=== PATIENT | male | born 1955 | race African-American/Black ===

== ENCOUNTER 2023-08-20 07:27 | Day surgery (SDC) | payer OTHER ==
[2023-08-17 14:49] LABS: Absolute Lymphocytes (CBC) 2.9 K/uL (0.7-4.9); Hematocrit 42.1 % (39.6-49.0); Lymphocytes % 33.5 % (15.3-44.8); MCV 90.9 fL (80-100); MPV 9.5 fL (7.6-11.3); Platelets 137 thou/uL (152-406); RBC Red Blood Cell Count 4.63 M/uL (4.33-5.43)
[2023-08-17 14:59] LABS: Potassium 3.6 mEq/L (3.5-5.1)
--- NOTE | 2023-08-17 15:27 | RAD REPORT ---
EXAM DESCRIPTION: Eric Dumont (2 Views)08/17/2023 2:41 pm CLINICAL HISTORY: Preop for hernia surgery COMPARISON: 2013 FINDINGS: The lungs appear clear of acute infiltrate. The heart is normal size IMPRESSION: No acute abnormalities displayed
[2023-08-20] MEDS ORDERED: Ringers Lactate 1,000 ML IV ONE (07:49)
[2023-08-20 08:07] LABS: MPV 9.6 fL (7.6-11.3); Platelets 123 thou/uL (152-406)
[2023-08-20 08:14] LABS: Protime INR 0.95
[2023-08-20] MEDS: CEFAZOLIN SODIUM 1 GM/VIAL ONE ×2 (08:16→08:55)
[2023-08-20] MEDS ORDERED: propofoL 200 MG/20 ML VIAL IV ONE (08:25)
[2023-08-20] MEDS ORDERED: FENTANYL CITR 100 MCG/2 ML ONE (08:25)
[2023-08-20] MEDS ORDERED: dexAMETHasone 10 MG/ML VIAL ONE (08:25)
[2023-08-20] MEDS ORDERED: ROCURONIUM 50 MG/5 ML VIAL IV ONE (08:25)
[2023-08-20] MEDS ORDERED: KETOROLAC 30 MG/ML INJ ONE (08:26)
[2023-08-20] MEDS ORDERED: MIDAZOLAM HCL 2 MG/2 ML INJ ONE (08:26)
[2023-08-20] MEDS ORDERED: LIDOCAINE 2% MPF 5 ML VIAL ONE (08:26)
[2023-08-20] MEDS ORDERED: ONDANSETRON 4 MG/2 ML VIAL ONE (08:31)
[2023-08-20 08:48] LABS: Platelets, Giant FEW
--- NOTE | 2023-08-20 09:33 | P.BOP ---
Preoperative diagnosis: bilateral incarcerated inguinal hernias Postoperative diagnosis: same Primary procedure: Laparoscopic repair of bilateral inguinal hernias with mesh Corporate Associate Attorney: Giselle Villanueva) Estimated blood loss: <10cc Specimen: none Findings: as above Anesthesia: General Complications: None Implants: medium 3D mesh bilateral Transferred to: Recovery Room Condition: Good
[2023-08-20] MEDS ORDERED: GLYCOPYRROLATE 0.2 MG/ML SYR ONE (09:34)
[2023-08-20] MEDS ORDERED: NEOSTIGMINE 1 MG/ML -10 ML VIAL ONE (09:36)
[2023-08-20] MEDS ORDERED: Mastisol Adhesive Liq ONE (09:42)
[2023-08-20 09:46] VITALS: O2SAT 100
[2023-08-20] MEDS: HYDROMORPHONE HCL 1 MG/ML INJ ONE ×2 (10:00→10:05)
[2023-08-20] MEDS ORDERED: TAMSULOSIN 0.4 MG SR CAP ONE (11:58)
[2023-08-20 14:01] VITALS: BP 137/76
[2023-08-20 14:02] VITALS: TEMP 97
--- NOTE | 2023-08-20 17:11 | EKG ---
Test Date: 2023-08-17 Test Time: 14:32:04 Dipper Machine Operator: SHWETA MEASUREMENT RESULTS: Intervals: Rate: 52 CT: 148 QRSD: 98 QT: 424 QTc: 394 [place]: P: 71 CT: 148 QRS: -18 T: -11 INTERPRETIVE STATEMENTS: Sinus bradycardia Septal infarct, age undetermined Abnormal ECG Compared to ECG 08/07/2014 18:00:44 Myocardial infarct finding now present Electronically Signed On 08-20-23 17:06:02 CDT by Saud Kingsley
--- NOTE | 2023-08-20 22:16 | OP ---
Date of Procedure: 08/20/2023 Surgeon: Lakhwinder Leo MD [employer] Mechanical Technician: SETH Michaels Preoperative Diagnosis: Bilateral incarcerated tender inguinal hernias. Postoperative Diagnosis: Bilateral incarcerated tender inguinal hernias. Procedure: Laparoscopic repair of bilateral incarcerated inguinal hernia with mesh. Estimated Blood Loss: Less than 10 mL. Specimen: None. Anesthesia: General plus local. Finding: As above. Implant: Medium 3D mesh right and left. Indications: This is the case of a 68-year-old patient who comes to us with bilateral inguinal herni as incarceration, on the right side is more pronounced with also a small bowel on it. The benefits, alternatives, and risks of laparoscopic possible open repair of bilateral inguinal hernias with mesh fully explained, which include, but not limited to infection, bleeding, damage to adjacent structures , anesthesia complication, recurrence, NH, even . He also understands this may not relieve any symptoms. He might need more than one surgical intervention. He also explained we might have to use mesh in this region. Pros and cons of mesh use were discussed with the patient and all the question s were answered to his satisfaction. He signed a consent. Description Of Procedure: The patient was brought to the operating room, placed in supine position. Anesthesia was done without complication. Abdominal and inguinal region were prepped and draped in a sterile fashion. Patient placed in Trendelenburg position. A time-out was called. An incision wa s made after injecting local anesthetic on the infraumbilical region until we see anterior rectus she ath that was on the right side. The anterior rectus sheath was opened. The muscle retracted lateral ly to expose the posterior rectus sheath. The extraperitoneal space was gently developed with the he lp of blunt dissection and a Spacemaker double balloon tip trocar was placed in that area directed to wards the pubic symphysis. The scope was placed in that area. The balloon was inflated under direct visualization to create the extraperitoneal space. After that, the balloon was deflated and removed . We insufflated the area and put the cameras once again in. A 5 mm trocar was placed above the pub ic symphysis and another one jail between the first and second one. The preperitoneal space was g ently developed first in the right side. We have to remember this patient has an incarcerated bowel, but it was reduced carefully. We had this peritoneal space developed. First I exposed the inferior epigastric vessels and we kept them anterior. The Darren's ligament was dissected lateral to the ju nction with the iliac veins. The dissection continued inferiorly to the iliopubic tract avoiding dam age to the femoral branch of the genitofemoral nerve and lateral femoral cutaneous nerve. The cord s tructures were carefully skeletonized. Once again, the hernia was retracted after making sure we hav e reduction of the content. It looked viable. That moment we did go to the left side. In the left side, we did the same. The preperitoneal space was gently developed, epigastric vessels kept anterio r. The Darren's ligament dissected laterally to the junction with the iliac veins. The dissection c ontinued inferiorly, once again avoiding damage to the same 2 nerve. The hernia was identified and c arefully reduced into the abdominal cavity and the content too which was mainly fatty tissue. At alex t moment, we proceeded to introduce a mesh piece. We to the left side first since we were already working on that area. We aligned the mesh to cover direct and indirect spaces and secured i n place lateral and superior to the iliopubic tract and inferior and medial to the Darren's ligament with the help of SorbaFix. Then, we directed our attention to the right side. Once again, we accomm odated a 3D mesh to cover direct and indirect spaces and the mesh was secured in place lateral and cantrell perior to the iliopubic tract and medially and inferiorly to the Darren's ligament once again with So rbaFix. After ensuring complete hemostasis, we proceeded to allow the air to escape as we were holdi ng the mesh in place. The trocars were removed under direct visualization. The anterior rectus nelson th was closed with #1 Vicryl and the skin was approximated with 3-0 chromic in a subcuticular fashion and Steri-Strips. Sponge count and instrument count was correct at the end of the case. Testicles were within the scrotum. Disposition: Home. Activity: As tolerated. No heavy lifting. Condition: Stable. Follow up in my office in 1 week. Call for appointment [phone]. Keep area dry for 48 hours, then m ay shower. Cold compress to bilateral inguinal region. HM/MODL Voice ID: [id number] Report ID: [id number]
== END 2023-08-20 11:53 | disposition home or self-care (01) ==
LOC: OR 07:27
PROVIDERS: ATTEND Surgery
PROC: 0YUA4JZ Supplement Bilateral Inguinal Region with Synthetic Substitute, Percutaneous Endoscopic Approach (ICD-10-PCS; principal; 2023-08-20 08:30)
DX: K40.00 Bilateral inguinal hernia, with obstruction, without gangrene, not specified as recurrent (principal)
CPT/HCPCS: 93005; 85025; 80048; 36415 ×2; 85049; 85610; 85730; 71046; 49650; J2704; J2710; J2001; J2250; J3010; J1100; J1170; J2405; J7120; J0690

== ENCOUNTER 2024-04-22 13:11 | Emergency (ER) | payer OTHER ==
--- OUTSIDE RECORDS SUMMARY | 2024-04-22 13:13 | XMS REPORT | Continuity of Care Document ---
Author Name Unknown Address [address] [facility]. [address] [place] [address] [facility] thconnect Address [address] [facility] [address] [place] [address] Care Team Providers Care Scientific Glass Blower Name Role Phone Andrew Moe Cardiology Attending Clinician Unavailable Ping CHANEY Attending Clinician Unavailable Ping Hoff Attending Clinician [phone] Doctor Unassigned, [place] Attending Clinician U navailable Andrew Moe Cardiology Admitting Clinician Unavailable Payers Payer Name Policy Type Policy Number Effective Date Expirati on Date Source [employer] MEDICARE ADV [id number] 00:00:00 Allergies, Adverse Reactions, Alerts Allergy Name Allergy Type Status Severity Reaction(s) Onset Date Inactive Date Treating Clinician Comments Source No Known Allergie s DA Active U 2022-11 00:00: 00 [facility] No Known Contrast Allergie s DA Active U 2005-11 0 00:00: 00 [facility] No Known Drug Allergie s DA Active U 2005-11 00:00: 00 [facility] No Known Food Allergie s DA Active U 2005-11 00:00: 00 [facility] No Known Other Allergie s DA Active U 2005-11 00:00: 00 [facility] NO KNOWN ALLERGIE S Drug Class Active [facility] Encounters Start Date/Time End Date/Time Encounter Type Admission Type Attending Clinicians Care Facility Care Department Encounter ID Source 2023-10-13 05:06:00 2023-10-13 05:06:00 Outpatient VINAYAK Andrew Moe HCAPM CATH [id number] 50 [facility] 2021-01-20 12:48:57 2021-01-20 12:48:57 Outpatient Andrew Moe HCAWU HCAWU [id number] [facility] 2019-12-08 18:31:31 2019-12-08 19:40:00 Emergency X Ping CHANEY [facility] ERT [id number] [facility] 2019-12-08 18:31:31 2019-12-08 19:40:00 Emergency Ping Chaneyge [facility] 1..[id number] 2019-12-08 00:00:00 2019-12-08 00:00:00 Orders Only Doctor Unassigned, [place] [facility] [id number] Results Test Description Test Time Test Comments Results Result Co mments Source COMPREHENSIVE METABOLIC [id number] 06:23:00* Test Item Value Reference Range Interpretation Comme nts SODIUM (test code = NA) 143 mmol/L 134-147 N POTASSIUM (test code = K) 3.5 mmol/L 3.4-5.0 N CHLORIDE (test code = CL) 109 mmol/L 100-108 H CARBON DIOXIDE (test code = CO2) 27 mmol/L 21-32 N ANION GAP (test code = GAP) 7.0 GAP calc 4.0-15.0 N GLUCOSE (test code = GLU) 110 MG/DL 70-110 N BLOOD UREA NITROGEN (test code = BUN) 17 MG/DL 7-18 N GLOMERULAR FILTRATION RATE (test code = GFR) >=60 max estimate estGFR >60 The Glomerular Filtration Rate is a calculated parameterbased on serum Creatinine, patient age and sex. GFR valuesless than 60 mL/min/1.73 square meters are indicative ofChronic Kidney Disease. Values less than 15 mL/min/1.73square meters indicate Kidney failure. The calculation forGFR is based on the CKD-EPI (2020) calculation. This formulais race indifferent and is the recommended formula for GFRby the National Kidney Foundation for Adults.The GFR will not calculate if the sex is unknown or if thepatient's age is <18 years. CREATININE (test code = CREAT) 1.1 MG/DL 0.8-1.3 N TOTAL PROTEIN (test code = PROT) 6.7 G/DL 6.4-8.2 N ALBUMIN (test code = ALB) 3.7 G/DL 3.4-5.0 N GLOBULIN (test code = GLOB) 3.0 GM/dL ALBUMIN/GLOBULIN RATIO (test code = A/G) 1.2 RATIO 1.2-2.2 N CALCIUM (test code = CA) 9.1 MG/DL 8.5-10.1 N BILIRUBIN TOTAL (test code = BILT) 0.40 MG/DL 0.2-1.2 N SGOT/AST (test code = AST) 22 Unit/L 15-37 N SGPT/ALT (test code = ALT) 37 Unit/L 12-78 N ALKALINE PHOSPHATASE TOTAL (test code = ALKP) 75 Unit/L 50-136 N LIPID PROFILE (CORONARY RISK)2023-10-13 06:23:00* Test Item Value Reference Range Interpretation Comme nts TRIGLYCERIDES (test code = TRIG) 118 MG/DL 0-150 N CHOLESTEROL (test code = CHOL) 105 MG/DL 133-200 L CHOLESTEROL/HDL RATIO (test code = CHOLHDL) 2.69 RATIO See_Comment RISK ASSOCIATED WITH CHOL/HDL RATIOS: RISK MALE FEMALE1/2 AVERAGE 3.43 3.27AVERAGE 4.97 4.442X AVERAGE 9.55 7.053X AVERAGE 23.39 11.04 NOTE THAT THE REFERENCE VALUE IS RELATED TO RISK LEVELS ASRECOMMENDED BY THE [facility]ATIONAL HE[facility], LUNG, AND BLOOD INSTITUTE. [Automated message] The system which generated this result transmitted reference range: 0-. The reference range was not used to interpret this result as normal/abnormal. HDL CHOLESTEROL (test code = HDL) 39 MG/DL 40-59 L NON-HDL CHOLESTEROL (test code = NHDL) 66 mg/dL <130 LIPOPROTEIN LDL (test code = LDL) 45 MG/DL 0-129 N <100 [id number] 0 - 129 NEAR OPTIMAL/ABOVE [id number] - 159 IROVBECCSD187 - 189 HIGH>OR= 190 VERY HIGHNOTE THAT GUIDELINES ARE PROVIDED BY NATIONAL CHOLESTEROLEDUCATION PROGRAM ADULT TREATMENT PANEL III LDL/HDL (test code = LDL/HDL) 1.15 Ratio See_Comment L [Automated messa ge] The system which generated this result transmitted reference range: 1.48-3.22 Avg. The reference range was not used to interpret this result as normal/abnormal. [id number] 06:23:00* Test Item Value Reference Range Interpretation Comme nts MAGNESIUM (test code = MAG) 2.1 MG/DL 1.8-2.4 N PROTHROMBIN [id number] 06:01:00* Test Item Value Reference Range Interpretation Comme nts PT PATIENT (test code = PTP) 11.4 SECONDS 9.3-12.9 N INTERNATIONAL NORMAL RATIO (test code = INR) 1.03 INR Unit 0.8-1.2 N TARGET INR BY INDICATION Indication INR1. Prophylaxis of venous thrombosis 2.0 - 3.0 (orthopedic surgery), Prophylaxis of venous thrombosis (other than high-risk surgery), Treatment of Deep Vein Thrombosis/Pulmonary Embolism, Prevention of systemic embolism - Tissue heart valves, Acute Myocardial Infarction (to prevent systemic embolism), Valvular heart disease, Acute Myocardial Infarction (to prevent systemic embolism), Valvular heart disease, Atrial Fibrillation, Bileaflet mechanical valve in aortic position.2. Mechanical prosthetic valves (high risk), 2.5 - 3.5 Presence of Lupus Anticoagulant or Antiphospholipid Antibodies, Prevention of systemic embolism - Acute Myocardial Infarction (to prevent recurrent infarct). CBC W/AUTO [id number] 05:58:00* Test Item Value Reference Range Interpretation Comme nts WHITE BLOOD CELL (test code = WBC) 8.5 K/mm3 3.5-11.0 N RED BLOOD CELL (test code = RBC) 4.66 M/mm3 4.70-6.10 L HEMOGLOBIN (test code = HGB) 14.5 G/DL 12.3-15.9 N HEMATOCRIT (test code = HCT) 43.2 % 35.8-46.7 N MEAN CELL VOLUME (test code = MCV) 92.7 Fl 86.3-98.9 N MEAN CELL HGB (test code = MCH) 31.1 pg 28.9-34.4 N MEAN CELL HGB CONCETRATION (test code = MCHC) 33.6 G/DL 32.1-34.5 N RED CELL DISTRIBUTION WIDTH (test code = RDW) 13.2 SD 11.5-14.5 N PLATELET COUNT (test code = PLT) 146 K/mm3 150-450 L MEAN PLATELET VOLUME (test c ode = MPV) 11.50 fL 7.0-9.6 H NEUTROPHIL % (test code = NT%) 55.3 % 40-76 N IMMATURE GRANULOCYTE % (test code = IG%) 0.2 % 0.0-5.0 N LYMPHOCYTE % (test code = LY%) 33.4 % 20.5-51.1 N MONOCYTE % (test code = MO%) 8.4 % 1.7-9.3 N EOSINOPHIL % (test code = EO%) 2.1 % 0.0-6.0 N BASOPHIL % (test code = BA%) 0.6 % 0.0-2.0 N NUCLEATED RBC % (test code = NRBC%) 0.0 /100WBC% 0.0-1.0 N NEUTROPHIL # (test code = NT#) 4.7 K/mm3 1.8-7.6 N IMMATURE GRANULOCYTE # (test code = IG#) 0.02 x10 3/uL 0.00-0.03 N LYMPHOCYTE # (test code = LY#) 2.8 K/mm3 0.6-3.0 N MONOCYTE # (test code = MO#) 0.7 K/mm3 0.2-1.5 N EOSINOPHIL # (test code = EO#) 0.2 K/mm3 0.0-0.4 N BASOPHIL # (test code = BA#) 0.1 K/mm3 0.0-0.2 N NUCLEATED RBC # (test code = NRBC#) 0.0 K/mm3 0.00-0.01 N [id number] 08:37:00* Test Item Value Reference Range Interpretation Comme [facility] ACT-ISTAT (test code = ACTI) 230 SEC 74-137 H BASIC METABOLIC [id number] 07:29:00* Test Item Value Reference Range Interpretation Comme [facility] SODIUM (test code = NA) 133 MMOL/L 137-145 L POTASSIUM (test code = K) 3.5 MMOL/L 3.5-5.1 N CHLORIDE (test code = CL) 99 MMOL/L 98-107 N CARBON DIOXIDE (test code = CO2) 30 MMOL/L 22-30 N GLUCOSE (test code = GLU) 102 MG/DL 74-106 N BLOOD UREA NITROGEN (test code = BUN) 18 MG/DL 9-20 N GLOMERULAR FILTRATION RATE (test code = GFR) > 60 Reporting units: ml/min/1.73 m2 (Modified MDRD Formula)Reference Range: > or = 60 ml/min/1.73 m2 CREATININE (test code = CREAT) 1.20 MG/DL 0.66-1.25 N CALCIUM (test code = CA) 9.3 MG/DL 8.4-10.2 N Comments to [employer]: NURSE WILL BRING SPECIMEN TO LABIs this a LINE draw? N LIPID PROFILE (CORONARY RISK)2021-01-22 07:29:00* Test Item Value Reference Range Interpretation Comme [facility] TRIGLYCERIDES (test code = TRIG) 157 MG/DL TRIGLYCERIDES REFERENCE RANGE:Normal: <150 mg/dLBorderline High: 150-199 mg/dLHigh: 200-499 mg/dLVery High: >=500 mg/dL CHOLESTEROL (test code = CHOL) 137 MG/DL <200 HDL CHOLESTEROL (test code = HDL) 42 MG/DL 40-59 N LIPOPROTEIN LDL (test code = LDL) 54 MG/DL 0-99 N OPTIMAL......... <100 mg/dLNEAR OPTIMAL/ABOVE OPTIMAL.........100-12 9 mg/dL BORDERLINE HIGH.........130-159 mg/dL HIGH.........160-189 mg/dL VERY HIGH.........>/= 190 mg/dL Comments to [employer]: NURSE WILL BRING SPECIMEN TO LABIs this a LINE draw? N [id number] 07:29:00* Test Item Value Reference Range Interpretation Comme nts MAGNESIUM (test code = MAG) 2.2 MG/DL 1.6-2.3 N Comments to [employer]: NURSE WILL BRING SPECIMEN TO LABIs this a LINE draw? N BASIC METABOLIC [id number] 07:18:00* Test Item Value Reference Range Interpretation Comme nts SODIUM (test code = NA) 133 MMOL/L 137-145 L POTASSIUM (test code = K) 3.5 MMOL/L 3.5-5.1 N CHLORIDE (test code = CL) 99 MMOL/L 98-107 N CARBON DIOXIDE (test code = CO2) 30 MMOL/L 22-30 N GLUCOSE (test code = GLU) 102 MG/DL 74-106 N BLOOD UREA NITROGEN (test code = BUN) 18 MG/DL 9-20 N GLOMERULAR FILTRATION RATE (test code = GFR) > 60 Reporting units: ml/min/1.73 m2 (Modified MDRD Formula)Reference Range: > or = 60 ml/min/1.73 m2 CREATININE (test code = CREAT) 1.20 MG/DL 0.66-1.25 N CALCIUM (test code = CA) 9.3 MG/DL 8.4-10.2 N Comments to [employer]: NURSE WILL BRING SPECIMEN TO LABIs this a LINE draw? N LIPID PROFILE (CORONARY RISK)2021-01-22 07:18:00* Test Item Value Reference Range Interpretation Comme nts TRIGLYCERIDES (test code = TRIG) 157 MG/DL TRIGLYCERIDES REFERENCE RANGE:Normal: <150 mg/dLBorderline High: 150-199 mg/dLHigh: 200-499 mg/dLVery High: >=500 mg/dL CHOLESTEROL (test code = CHOL) 137 MG/DL <200 HDL CHOLESTEROL (test code = HDL) 42 MG/DL 40-59 N LIPOPROTEIN LDL (test code = LDL) MG/DL 0-99 Comments to [employer]: NURSE WILL BRING SPECIMEN TO LABIs this a LINE draw? N [id number] 07:18:00* Test Item Value Reference Range Interpretation Comme nts MAGNESIUM (test code = MAG) 2.2 MG/DL 1.6-2.3 N Comments to [employer]: NURSE WILL BRING SPECIMEN TO LABIs this a LINE draw? N PROTHROMBIN [id number] 07:16:00* Test Item Value Reference Range Interpretation Comme nts PROTHROMBIN TIME PATIENT (test code = PTP) 10.9 9.5-12.7 N INTERNATIONAL NORMAL RATIO (test code = INR) 1.0 0.86-1.14 N The INR is to be used only for monitoring oral anticoagulanttherapy. INDICATION INR VALUE 1. Prophylaxis, deep venous thrombosis, including high risk surgery. 2.0 - 3.0 2. Prophylaxis, deep venous thrombosis, hip surgery, treatment for deep venous thrombosis or pulmonary prevention of systemic embolism in patients with valvular heart disease, atrial fibrillation, tissue heart valve, or acute myocardial infarction. 2.0 - 3.0 3. Mechanical prosthesis heart valves, recurrent systemic embolism. 3.0 - 4.5 Comments to [employer]: NURSE WILL BRING SPECIMEN TO LABPTT ACTIVATED 2021-01-22 07:16:00* Test Item Value Reference Range Interpretation Comme nts PTT ACTIVATED (test code = APTT) 26.9 SECONDS 25.1-36.5 N Comments to [employer]: NURSE WILL BRING SPECIMEN TO LABCBC W/AUTO DIFF 2021-01-22 07:06:00* Test Item Value Reference Range Interpretation Comme nts WHITE BLOOD CELL (test code = WBC) 8.7 K/MM3 3.8-9.8 N RED BLOOD CELL (test code = RBC) 4.73 M/MM3 3.95-5.67 N HEMOGLOBIN (test code = HGB) 15.3 G/DL 12.4-16.7 N HEMATOCRIT (test code = HCT) 44.0 % 35.9-49.5 N MEAN CELL VOLUME (test code = MCV) 93 fL 81.7-96.1 N MEAN CELL HGB (test code = MCH) 32.3 pg 27.6-33.2 N MEAN CELL HGB CONCETRATION (test code = MCHC) 34.8 % 32.9-35.5 N RED CELL DISTRIBUTION WIDTH (test code = RDW) 13.1 % 12.1-15.2 N PLATELET COUNT (test code = PLT) 150 K/MM3 129-368 N MEAN PLATELET VOLUME (test c ode = MPV) 10.6 fl 7.4-10.4 H NEUTROPHIL % (test code = NT%) 60.8 % 43-75 N IMMATURE GRANULOCYTE % (test code = IG%) 0.6 % 0.0-2.0 N LYMPHOCYTE % (test code = LY%) 28.4 % 14-44 N MONOCYTE % (test code = MO%) 8.4 % 4-13 N EOSINOPHIL % (test code = EO%) 1.3 % 0-6 N BASOPHIL % (test code = BA%) 0.5 % 0-2 N NUCLEATED RBC % (test code = NRBC%) 0.0 % 0-1.0 N NEUTROPHIL # (test code = NT#) 5.27 K/mm3 2.0-7.6 N IMMATURE GRANULOCYTE # (test code = IG#) 0.05 x10 3/uL 0-0.03 H LYMPHOCYTE # (test code = LY#) 2.46 K/mm3 1.0-3.8 N MONOCYTE # (test code = MO#) 0.73 K/mm3 0.1-0.8 N EOSINOPHIL # (test code = EO#) 0.11 K/mm3 0.0-0.2 N BASOPHIL # (test code = BA#) 0.04 K/mm3 0.0-0.2 N NUCLEATED RBC # (test code = NRBC#) 0.00 K/mm3 0.0-0.1 N Comments to [facility] [employer]: NURSE WILL BRING SPECIMEN TO LABIs this a LINE draw? N COVID 19 Asymptomatic IH [id number] 05:49:00* Test Item Value Reference Range Interpretation Comme nts COVID 19 Asymptomatic IH AG (test code = COVNONPUIAG) NEGATIVE Negative "Negative result s from patients with symptom onset beyondfive days, should be treated as presumptive, andconfirmation with a molecular assay, if necessary forpatient management may be performed. Negative results do notrule out COVID-19 and should not be used as the sole basisfor treatment or patient management decisions, includinginfection control decisions. Negative results should beconsidered in the context of a patients recent exposures,history, and the presence of clinical signs and symptomsconsistent with COVID-19.This test detects both viable andnon-viable SARS-CoV and SARS CoV-2.Test performance dependson the amount of virus (antigen) in the sample." Notes Date/Time Note Provider Source 2023-10-13 07:46:00 [id number] [id number]/[id number]:46:89010 [address] [facility] [id number] [place] [id number] PATIENT NAME: GREGORY GONZALES ADMIT DATE: 10/13/23ACCOUNT NO: [id number] ROOM NO: AGE: 68 REPORT TYPE: OPERATIVE REPORT SEX: M ADMITTING PHYSICIAN: ATTENDING PHYSICIAN: Andrew Moe MD Cardiology OPERATION DATE: 10/13/2023 PREOPERATIVE DIAGNOSIS: POSTOPERATIVE DIAGNOSIS: WAREHOUSER: Andrew Moe MD. SLEEVE SEPARATOR: INDICATION FOR THE PROCEDURE: Severe symptomatic peripheral arterial disease, worse on the left in a patient with previous right iliac stenting. TITLE OF PROCEDURE:1. Abdominal and bilateral selective iliofemoral angiograms.2. First order angiogram of the right lower extremity.3. Third order angiogram of the left lower extremity.4. Laser atherectomy of the left SFA, DCB of the left SFA and closing device. ESTIMATED BLOOD LOSS: Minimal. COMPLICATIONS: None. CONTRAST: 145 mL ANESTHESIA: Conscious sedation with Versed and fentanyl. 1% lidocaine for local anesthesia. FINAL DIAGNOSES: Patent right common iliac stent, 65% calcified lesion of the right SFA, 95% lesion of the left SFA that is calcified, 2-vessel runoff distally bilaterally. The patient is now status post successful laser atherectomy and DCB of the left SFA. The recommendation is medical therapy for now. DESCRIPTION OF PROCEDURE: After informed consent, the patient was brought to the cardiac catheterization lab in a stable fasting nonsedated state. He was prepped and draped in the usual sterile fashion. After conscious sedation, 1% lidocaine was administered to the right common femoral artery area for local anesthesia. A 6-Slovenian sheath was placed in the right common femoral artery using standard techniques and fluoroscopy. After heparinization, selective right lower extremity angiogram first order showed patent right common iliac stent, 30% plaque of the common femoral, 20% plaque at the ostium of the right PATIENT NAME: GREGORY GONZALES common iliac. The right SFA mid vessel is calcified with 65% lesion. Two 3-vessel runoff distally was noted. Abdominal angiogram showed the right renal artery to have 25% plaquing. The left is patent. The abdomen distally has about 30% plaquing. The left common iliac has 30% plaquing. Then, we did a selective third order angiogram of the left lower extremity all the way down using the up and over 45 cm sheath and with the NaviCross catheter and that showed 95% lesion of the SFA calcified, and 40% of the left popliteal and 2-vessel runoff distally using the up and over sheath. The [place] Advantage wireand the NaviCross, I was able to cross the lesion and then I exchanged it to theProteoTech V-18 wire and then we did the laser SpectranetMirriad atherectomy 3 runs through the calcified lesion of the SFA then was followed with a [employer] Corporationtronic Impact 6 x 120 at 3 minutes. That resulted in 0% residual and good distal flow and no angiographic complications. The right groin was sealed usingAngio-Seal. The patient tolerated the procedure well and [facility] to be discharged later on today on medical therapy and risk factor modification. Dictated By: Andrew Moe MD Date Dictated: 10/13/2023 07:46:09Date Transcribed: 10/13/2023 08:05:27CONRADO/Kait #: [id number] ID: [id number] by Andrew Moe MD On 10/13/2023 09:06:41 AM at 0906 PATIENT NAME: GREGORY GONZALES [id number]:05:00L.[id number] lable for patient [id number]:07:10 [facility] 2023-10-13 05:56:00 [id number]/+k UwuRIVu3l2b/jc6VuYwWMz7xsen/n g/rFW[id number]:56:[address] [address] PATIENT NAME: GREGORY GONZALES ADMIT DATE: 10/13/23ACCOUNT NO: [id number] ROOM NO: AGE: 68 REPORT TYPE: eELECTROCARDIOGRAM SEX: M ADMITTING PHYSICIAN: ATTENDING PHYSICIAN: Andrew Moe MD Order:[id number] Reason : PREOP Test Date/Time Stamp:SunOct 13 2023 05:56:19Blood Pressure : / mmHGVent. Rate : 048 BPM Atrial Rate : 048 BPM P-R Int : 150 ms QRS Dur : 100 ms QT Int : 466 ms P-R-T Axes : 073 -29 024 degrees QTc Int : 416 ms Sinus bradycardia with sinus arrhythmiaOtherwise normal ECGWhen compared with ECG of 22-JAN-2021 07:08,No significant change was foundConfirmed by ANDREW MOE ([id number]) on 10/13/2023 6:34:48 AM Referred By: Andrew Moe Confirmed by:ANDREW MOE at 0634 PATIENT NAME: GREGORY GONZAELS .[id number] AVAvailable for patient [id number]:35:13 [facility] 2023-10-12 07:19:00 [id number]fi [id number]:19:12294 8-[address] [address] PATIENT NAME: GREGORY GONZALES ADMIT DATE: ACCOUNT NO: [id number] ROOM NO: AGE: 68 REPORT TYPE: HISTORY AND PHYSICAL SEX: M ADMITTING PHYSICIAN: ATTENDING PHYSICIAN: Andrew Moe MD Cardiology PATIENT NAME: GREGORY GONZALES ADMIT DATE:10/13/2023DMISSION DATE: 10/13/2023 07:00:00 ADMISSION HISTORY AND PHYSICAL WAREHOUSER: Andrew Moe MD REASON FOR ADMISSION: Peripheral angiogram and possible revascularization in apatient with known peripheral arterial disease and previous revascularizationback in 2020. HISTORY OF PRESENT ILLNESS: Gregory is a 68-year-old patient with knownatherosclerotic cardiovascular disease and significant peripheral arterialdisease history. I have been following the patient in my office since 2008.Back in 2020, he had a cardiac catheterization that showed single vesselcoronary artery disease and basically second obtuse marginal was 60% and he willbeen treated medically for his coronary artery disease. He has had carotidangiograms that showed the right carotid to be 65%. The left was luminalirregularities. He had 50% bilateral calcified SFAs. The right common iliacwas 90% disease, for which he received an express iliac stent 8 x 27 mm. He had30% on the other side and 30% in the distal aorta. The patient has been treatedwith medical therapy and risk factor modification. Recently, he startedexperiencing worsening claudications, more so on the left leg. His lowerarterial Doppler examination showed the right ankle brachial index to be 0.82,which has been stable. The left ankle brachial index has dropped down to 0.56,suggestive of severe iliofemoral disease. This was significantly changed fromprevious evaluation about a year ago. The patient appears to have progression ofhis disease. The patient continues to use tobacco. The patient is here forabdominal and bilateral selective iliofemoral angiograms and possiblerevascularization of his left lower extremity. [facility] His cardiac status has been stable. He has dyspnea on exertion,but no angina, no congestive heart failure, no TIAs or strokes. The patient'slast carotid Doppler in March 2023 was stable. Last echocardiogram in January was also stable. He had a nuclear stress test that was negative forischemia on 04/05/2023. He does have PVCs and short runs of paroxysmalsupraventricular tachycardia, has been followed up by monitoring. The patientis here today for peripheral angiograms and possible revascularization. PAST MEDICAL HISTORY: Remarkable for the above, in addition to hypertension,hyperlipidemia, anxiety, acid reflux and allergies. PAST SURGICAL HISTORY: Tonsillectomy as a child, colonoscopies in 2018 and the PATIENT NAME: GREGORY GONZALES peripheral above-mentioned procedures. ALLERGIES: NO KNOWN DRUG ALLERGIES. MEDICATIONS: He has been on aspirin 81 mg daily, clopidogrel 75 mg daily,pantoprazole 40 mg daily, alprazolam twice daily, montelukast 10 mg daily,bupropion 75 mg ____ tablet daily, eyedrops, atorvastatin 20 mg daily,amlodipine 5 mg daily, carvedilol 6.25 mg b.i.d., losartan/fofolhhebegmpzqksry950/12.5 mg daily. SOCIAL HISTORY: The patient is a current smoker. He is unable to quit. Hedrinks alcohol socially. There is no history of street drug use. FAMILY HISTORY: Positive for atherosclerotic cardiovascular disease. REVIEW OF SYSTEMS: Remarkable for the above, in addition to allergies,sciatica, anxiety. No acute GI or symptoms. No TIAs or strokes. PHYSICAL EXAMINATION:GENERAL: Reveals a pleasant elderly male, in no acute distress.VITAL SIGNS: Blood pressure 120/76, pulse 66 and regular, respiratory rate 16and unlabored, temperature afebrile.HEENT: Head atraumatic, normocephalic. Eyes and ENT examination within normalfor age.NECK: Supple. No jugular venous distention, bruits or lymphadenopathy. Normalupstroke.LUNGS: Decreased air entry, otherwise clear and resonant.HEART: Regular rate and rhythm with I/ systolic ejection murmur at the leftlower sternal border. No gallops.ABDOMEN: Soft. No tenderness, no organomegaly, no masses or bruits.EXTREMITIES: 1+ distal pulses. No edema, cyanosis, or clubbing.NEUROLOGIC: Alert and oriented x3. Examination appears to be nonfocal. LABORATORY DATA: Pending. Noninvasive cardiovascular workup enclosed. IMPRESSION: This is a 68-year-old patient with known atheroscleroticcardiovascular disease, stable coronary artery disease and carotid disease, whois now more symptomatic with his peripheral arterial disease, mainly on the leftleg with minimal exertion. His lower arterial Doppler examination confirmed thefinding of worsening disease on the left. The patient has had a right commoniliac stent in 2020. The patient is here today for abdominal and bilateralselective iliofemoral angiograms. The access will be from the right groin andhe will be evaluated for intervention on the left lower extremity. PLAN: The recommendation is to proceed with the above-mentioned procedures.The risks and benefits of the planned procedures were discussed in detail withthe patient and available family members and he is willing to proceed. Thepatient also was strongly advised to quit tobacco and continue medical therapyand risk factor modification. Dictated By: Andrew Moe MD Date Dictated: 10/12/2023 07:19:18Date Transcribed: 10/12/2023 08:08:41 PATIENT NAME: GREGORY GONZALES Ara/BRITANYV/SHERLEY/STEPHUEmmab #: [id number] ID: [id number] and Edited by Andrew Moe MD On 10/12/23 5:42:24 PM at 0543 PATIENT NAME: GREGORY GONZALES and physical jagpwuzgwyz4477-26-96B75:08:00L.[id number] VAvailable for patient evpiEJCOFRJVZELLYL7457-34-66Q81:44:33 [facility] 2021-01-22 11:27:00 [id number] 2YGLMWNDfdm7pEBS4miu/YjMY5ITZ wTpaSF1Ask70ufG8cfyl7j0v17Xx59qdoI1273-78-07G65:2 7:[id number] [place] [id number] PATIENT NAME: GREGORY GONZALES ADMIT DATE: 01/22/21ACCOUNT NO: [id number] ROOM NO: AGE: 65 REPORT TYPE: ECHOCARDIOGRAM SEX: M ADMITTING PHYSICIAN: ATTENDING PHYSICIAN:Andrew Moe MD *[facility]*[address] [place], [place] [address]Phone Transthoracic Echocardiogram Patient: Chace Gonzalesudy Date: 01/22/2021 BP: 146 / 79 Location: DAWNN: [id number] : 1955 Age: 65 Height: 67 in / 170.2 cmAccession#: [id number] Gender: M Weight: 175 lb / 79.5 kgBMI/BSA: 27.5 kg/m 2 / 1.96 m 2 *Ordering Physician: * Andrew Moe MD *Interpreting Physician: * Andrew Moe MD*Stopping Builder: * Mary Kay Mcghee T Indications: CAD [place] Vessel. Cmp. Study data: Transthoracic echocardiogram. Procedure: Transthoracicechocardiography was performed. Images were obtained using a ExecNote cardiacultrasound machine. Image quality was adequate. M-mode, complete 2D,complete spectral Doppler, and color Doppler. Location: Recovery room. Patient status: Outpatient. Patient room number: ch3. Study status:Routine. Findings Left ventricle: The cavity size is normal. Wall thickness is normal.Systolic function is mildly reduced. The estimated ejection fraction is40-44%. Regional wall motion abnormalities: Mild hypokinesis. Thepulmonary vein flow pattern is normal. Doppler parameters are consistentwith abnormal left ventricular relaxation (grade 1 diastolic PATIENT NAME: GREGORY GONZALES dysfunction).Right ventricle: The cavity size is normal. Systolic function isnormal. The tricuspid jet envelope definition is inadequate forestimation of RV systolic pressure.Left atrium: The atrium is normal in size.Right atrium: The atrium is normal in size.Atrial septum: No defect or patent foramen ovale is identified.Aorta: The aortic root is not dilated.Aortic valve: The valve is trileaflet. The leaflets are mildlythickened. Cusp separation is normal. Transvalvular velocity is withinthe normal range. There is no evidence of stenosis. There is noregurgitation.Mitral valve: The leaflets are mildly thickened. There is mildregurgitation.Tricuspid valve: Not well visualized. There is no regurgitation.Pulmonic valve: Not well visualized. There is no regurgitation.Pericardium: There is no pericardial effusion. No evidence of pleuralfluid accumulation.Systemic veins:Inferior vena cava: The vessel is normal in size. Measurements Left ventricle Value Ref MOE, LAX 4.6 cm 4.2 - 5.8 ESD, LAX 3.6 cm 2.5 - 4.0 ESD/bsa, LAX 1.8 cm/m 2 1.3 - 2.1 FS, LAX 22 % 25 - 43 ESD/bsa major 3.3 cm/m 2 --------- ax, A4C MOE/bsa minor 3.3 cm/m 2 --------- ax, A4C MOE major ax, 7.8 cm --------- A2C ESD major ax, 4.9 cm --------- A2C MOE/bsa major 4.0 cm/m 2 --------- ax, A2C ESD/bsa major 2.5 cm/m 2 --------- ax, A2C PW, ED 1.0 cm 0.6 - 1.0 PW, ES 1.3 cm --------- IVS/PW, ED 1.03 --------- EF 45 % 52 - 72 IVRT 157 ms --------- E', lat eliud, 7.0 cm/sec >=10.0 TDI E/e', lat eliud, 9 --------- TDI E', med eliud, 5.0 cm/sec >=7.0 TDI E/e', med eliud, 12 --------- TDI PATIENT NAME: GREGORY GONZALES E', avg, TDI 6.0 cm/sec --------- E/e', avg, TDI 10 <=14 LVOT Value Ref Diam, S 2.24 cm --------- Area 3.9 cm 2 --------- Peak patricia, S 0.66 m/sec --------- Mean patricia, S 0.39 m/sec --------- VTI, S 12.9 cm --------- Peak grad, S 2 mm Hg --------- Mean grad, S 1 mm Hg --------- SV 51 ml --------- Qs 3.14 L/min --------- Qs/bsa 1.6 L/(min-m 2) --------- SV/bsa 26 ml/m 2 --------- Ventricular septum Value Ref IVS, ED 1.0 cm 0.6 - 1.0 IVS, ES 1.4 cm --------- Right ventricle Value Ref MOE, LAX 2.2 cm --------- RVOT Value Ref Peak v, S 0.46 m/sec --------- Peak grad, S 1 mm Hg --------- Left atrium Value Ref AP dim, ES 2.65 cm 3.00 - 4.00 Area ES, A4C 10 cm 2 <=20 AP dim, ES MM 2.3 cm 3.0 - 4.0 LA/Ao root 0.65 --------- ratio, MM Right atrium Value Ref Area, ES, A4C 9 cm 2 10 - 18 Aortic valve Value Ref Leaflet sep, MM 2.29 cm --------- Peak v, S 0.66 m/sec --------- Mean v, S 0.5 m/sec --------- VTI, S 14.9 cm --------- Mean grad, S 1.1 mm Hg --------- Peak grad, S 1.8 mm Hg --------- LVOT/AV, VTI 0.87 --------- ratio PATRICIA, VTI 3.42 cm 2 --------- LVOT/AV, Vpeak 0.99 --------- ratio PATRICIA, Vmax 3.91 cm 2 --------- Mitral valve Value Ref Peak E 0.6 m/sec --------- PATIENT NAME: GREGORY GONZALES Peak A 0.83 m/sec --------- Mean v, D 0.48 m/sec --------- VTI leaflet 31.6 cm --------- coapt Decel time 176 ms --------- PHT 114 ms --------- Mean grad, D 1.0 mm Hg --------- Peak grad, D 2.4 mm Hg --------- Peak E/A ratio 0.72 --------- MVA, PHT 1.9 cm 2 --------- Pulmonic valve Value Ref NH v, ED 0.62 m/sec --------- Aortic root Value Ref Root diam 3.3 cm <4.1 Root diam, ED 3.47 cm --------- MM Conclusions Summary: Left ventricle: The cavity size is normal. Wall thickness isnormal. Systolic function is mildly reduced. The estimated ejectionfraction is 40-44%. Mild hypokinesis. Doppler parameters are consistentwith abnormal left ventricular relaxation (grade 1 diastolicdysfunction). Prepared and electronically signed by Andrew oMe MD01/22/2021 11:27 at 1127 PATIENT NAME: GREGORY GONZALES :27:0 0Z.[id number] for patient iqffKVNZSLSQHHVSGY3065-99-13F25:28:06 [facility] 2021-01-22 11:25:00 [id number] 8neinxHg008WMpvLQWd3MvUOshcgR VkW+EbMvickx9K6SmzM2J00psbnlRt8e3H6953-65-86H13:2 5:[id number] [place] [id number] PATIENT NAME: GREGORY GONZALES ADMIT DATE: 01/22/21ACCOUNT NO: [id number] ROOM NO: AGE: 65 REPORT TYPE: eCAROTID ULTRASOUND SEX: M ADMITTING PHYSICIAN: ATTENDING PHYSICIAN:Andrew Moe MD *[facility]*[address] [place], [place] [address]Phone Carotid Duplex Study Patient: Gregory GonzalesStudy Date: 01/22/2021 BP: 129 / 78 Location: DAWNN: [id number] : 1955 Age: 65 Height: 67 in / 170.2 cmAccession#: [id number] Gender: M Weight: 174.6 lb / 79.4 kgBMI/BSA: 27.4 kg/m 2 / 1.95 m 2 *Ordering Physician: * Andrew Moe MD*Interpreting Physician: * Andrew Moe MD*Stopping Builder: * Mary Kay Mcghee [facility] Indications: Carotid stenosis. Study data: Carotid duplex study. Bilateral evaluation with ejhbmybgr1R imaging, color Doppler imaging, and spectral Doppler analysis.Location: Recovery room. Patient status: Outpatient. Patient roomnumber: CH3. Procedure: A vascular evaluation was performed. Imageswere obtained using a ExecNote vascular ultrasound machine. Image quality wasadequate. Study status: Routine. Findings Carotid/vertebral arteries:Right common carotid: The vessel has minimal plaque.Right internal carotid: The proximal vessel has moderate plaque.Proximal vessel lesion: There is a 60-70% stenosis.Right external carotid: The vessel has minimal plaque.Right vertebral: The arterial flow direction is antegrade. PATIENT NAME: GREGORY GONZALES Left vertebral: The arterial flow direction is antegrade.Left common carotid: The vessel has minimal plaque.Left internal carotid: The proximal vessel has minimal plaque. Proximalvessel lesion: There is a 1-19%stenosis.Left external carotid: The vessel has minimal plaque. Arterial flow: Location PSV* EDV* PSV Stenosis Location PSV* EDV* PSV Stenosis ratio ratioR CCA, prox 57 20 ----- -------- L CCA, 62 15 ----- -------- proxR CCA, mid 65 26 ----- -------- L CCA, 57 19 ----- -------- midR CCA, 58 18 ----- -------- L CCA, 72 21 ----- --------distal distalR ICA, prox 143 57 2.22 60-70% L ICA, 53 16 0.74 1-19% proxR ICA, mid 78 33 1.21 -------- L ICA, 87 32 1.22 -------- midR ICA, 98 29 1.53 -------- L ICA, 94 41 1.31 --------distal distalR ECA 41 8 ----- -------- L ECA 41 11 ----- --------R vertebral 33 10 ----- -------- L 49 18 ----- -------- vertebra l *Velocities are expressed in cm/sec, Diameters are expressed in cm Conclusions 1. Study suggests 60-70% stenosis involving the right carotid artery bifurcation and right prox internal carotid artery.2. Study suggests 1-19% stenosis involving the left carotid artery bifurcation and left internal carotid artery.3. Antegrade flow noted in the right vertebral artery and left vertebral artery. Prepared and electronically signed by Andrew Moe MD01/22/2021 11:25 at 1126 PATIENT NAME: GREGORY GONZALES opvguyp2691-00-42U58:25:00Z.[id number] ilable for patient snkdTWMIGZQTVWWQDG5985-79-59Y28:26:35 [facility] 09:21:00 [id number] aOfX/tSpSx3ZNIK+vV7Nb78HCRqmZ Carlos/Rg3qzrx+HlKDK0hzdm32rPzapd1/2Zd4546-48-60M56:2 1:[id number] [address] PATIENT NAME: GREGORY GONZALES ADMIT DATE: 01/22/21ACCOUNT NO: [id number] ROOM NO: AGE: 65 REPORT TYPE: CARDIAC CATHETERIZATION REPORT SEX: M ADMITTING PHYSICIAN: ATTENDING PHYSICIAN:Andrew Moe MD PROCEDURE DATE: 01/22/2021 WAREHOUSER: Andrew Moe MD INDICATION FOR THE PROCEDURE: Coronary artery disease, peripheral arterialdisease, carotid disease that are symptomatic. TITLE OF THE PROCEDURE:1. Left heart catheterization without left ventricular angiogram.2. Bilateral selective carotid angiograms.3. Abdominal and bilateral selective iliofemoral angiograms.4. First order angiogram of the right lower extremity.5. Third order angiogram of the left lower extremity.6. ZONING ASSISTANT and stenting of the right common iliac.7. Sealing device. ESTIMATED BLOOD LOSS: Minimal. COMPLICATIONS: None. CONTRAST: 175 mL. ANESTHESIA: Conscious sedation with Versed and fentanyl and 1% lidocaine forlocal anesthesia. FINAL DIAGNOSES: Single-vessel coronary artery disease, calcified arteries,moderate right carotid disease, 65%, the left has luminal irregularities, severeright common iliac disease status post stenting, 50% bilateral SFA disease with3-vessel runoff. The recommendation is medical therapy for the coronary andcarotid disease and the patient received a stent of his right common iliac. PROCEDURE IN DETAIL: After informed consent, the patient was brought to thecardiac catheterization lab in a stable fasting nonsedated state. He wasprepped and draped in the usual sterile fashion. After conscious sedation, 1%lidocaine was administered to the right common femoral artery area for localanesthesia. A 6-Slovenian sheath was placed in the right common femoral arteryusing standard techniques and fluoroscopy. After heparinization, right commoniliac angiogram was done due to the wire not crossing, showed a 90% lesion inthe right common iliac, so I went ahead and used a Storq wire and a 23 sheathand after heparinization and antiplatelet therapy, I stented the right commoniliac with a [employer] iliac stent 8 x 27 that resulted in goodapposition of the stent and 0% residual. Then, I went ahead and did selective PATIENT NAME: GREGORY GONZALES angiograms of the right lower extremity that showed 50% SFA disease with3-vessel runoff. At the end of the procedure, I did selective abdominal andthird order angiogram of the left lower extremity. The right renal has 20%plaque. The distal aorta had some plaquing around 30% and the left common iliachad 30%, the left SFA 50% with 3-vessel runoff. Coronary angiograms showed theLAD had a 30% plaque, the calcified arteries. The circumflex has severalbranches. It is a large vessel. The second obtuse marginal had a 60% lesion,the rest less than 30%. Right coronary angiogram showed 30% proximal, it's asmaller vessel, but gives the PDA. LV gram was not done. Selective bilateralcarotid angiograms showed the right carotid, 65% at the internal. The left hadluminal irregularities. The right groin was sealed using Angio-Seal. Therewere no complications. The patient tolerated the procedure well and wastransferred back to the holding area for observation, to be discharged later ontoday on medical therapy and risk factor modification. Dictated By: Andrew Moe MD WT: CATH:MARILU/CECILE/NTSDD: 01/22/2021 09:21:24DT: 01/22/2021 10:17:35Conf#: [id number]/DID#: [id number] Authenticated by Andrew Moe MD On 01/22/2021 11:20:54 AM at 1121 PATIENT NAME: GREGORY GONZALES Qfiv1252-61-56V87:17:00Z.[id number] ble for patient tortNXUZRFMFPYOTTH1510-58-39D87:21:25 [facility] 2021-01-22 07:08:00 [id number] DbjrDwNO7osWAfojjY7Q36nqCixGa EW3FNta1Q+CjcuctTI5e3Nhy5PwrV5SF2k5228-84-80T63:0 8:[id number] [place] [address] PATIENT NAME: GREGORY GONZALES ADMIT DATE: 01/22/21ACCOUNT NO: [id number] ROOM NO: AGE: 65 REPORT TYPE: ELECTROCARDIOGRAM SEX: M ADMITTING PHYSICIAN: ATTENDING PHYSICIAN:Andrew Moe MD Order:[id number] Reason : CAD Test Date/Time Stamp:SunJan 22 2021 07:08:32Blood Pressure : / mmHGVent. Rate : 065 BPM Atrial Rate : 065 BPM P-R Int : 168 ms QRS Dur : 090 ms QT Int : 430 ms P-R-T Axes : 049 038 041 degrees QTc Int : 447 ms Normal sinus rhythmNormal ECGNo previous ECGs availableConfirmed by ANDREW MOE ([id number]) on 01/22/2021 9:23:19 AM Referred By: Andrew Moe Confirmed by:ANDREW MOE at 0923 PATIENT NAME: GREGORY GONZALES .[id number] AVAvailable for patient kageFCZDJGUYLWHVBN4073-27-63H23:23:40 [facility] 2021-01-21 07:41:00 [id number] KO5dEG+uoZMNnG1vDxQt9baO7oHBh LlpeLlsy6i0iUqnecr4fXvd3D1cRWydZwt9249-44-04E58:4 1:[id number] [address] PATIENT NAME: GREGORY GONZALES ADMIT DATE: ACCOUNT NO: [id number] ROOM NO: AGE: 65 REPORT TYPE: PREOP HISTORY AND PHYSICAL SEX: M ADMITTING PHYSICIAN: ATTENDING PHYSICIAN:Andrew Moe MD PATIENT NAME: GREGORY GONZALES ADMIT DATE:01/22/2021DMISSION DATE: 01/22/2021 WAREHOUSER: Andrew Moe MD REASON FOR ADMISSION: Dyspnea, coronary artery disease, peripheral arterialdisease, cardiomyopathy, and carotid disease. For left heart catheterization,carotid angiograms, and peripheral angiograms. HISTORY OF PRESENT ILLNESS: Gregory is a 65-year-old patient of [facility] with knownatherosclerotic cardiovascular disease, who I have been following in my officeon medical therapy since 2008. The patient has not ever received an invasiveprocedure. He has been having worsening symptoms with time, mainly dyspnea andhis noninvasive workup with a carotid Doppler on 12/28/2020 showed worseningcarotid disease with the right being 51% to 69%. He had a nuclear stress testthat also was worse than before showing cardiomyopathy, ejection fraction of 42%with possible inferoposterior scar and this has changed compared to previousevaluation. He has had 2 short supraventricular tachycardia runs on the Holtermonitor. His lower arterial Doppler examination has shown severe iliofemoraldisease on the right with an ankle brachial index of 0.62 and the left is 0.86suggestive of moderate iliofemoral disease. The patient has been known to haveperipheral arterial disease for many years and has been managed medically, butnow with the worsening symptoms and findings, he is here for angiography toassess for further possible revascularization. His last echocardiogram showedmild mitral regurgitation, normal ejection fraction, hypertensive changes. PAST MEDICAL HISTORY: In addition to the above, the patient has hypertension,hyperlipidemia, PVCs, anxiety disorder, acid reflux, and allergies. PAST SURGICAL HISTORY: He has had tonsillectomy as a child and had colonoscopyin 2018. He has been hospitalized with bronchitis in December 2019. ALLERGIES: NO KNOWN DRUG ALLERGIES. MEDICATIONS: Xanax as needed, aspirin 81 mg daily, tramadol 50 mg as needed.Montelukast sodium 10 mg daily, losartan/HCT 100/12.5 mg daily, amlodipine 5 mgdaily, clopidogrel 75 mg daily, atorvastatin 40 mg daily, BuSpar 75 mg daily. SOCIAL HISTORY: The patient is a current smoker. He drinks alcohol regularly.There is no history of street drug use. Alcohol drinks is socially. PATIENT NAME: GREGORY GONZALES FAMILY HISTORY: Positive for atherosclerotic cardiovascular disease. REVIEW OF SYSTEMS: Remarkable for allergies, sciatica, leg pains, and anxiety.His leg pains are worse on the right, especially in the hip areas. The rest ofthe review of system is enclosed. He does have history of anxiety. PHYSICAL EXAMINATION:GENERAL: Reveals a pleasant elderly male, in no acute distress.VITAL SIGNS: Blood pressure 131/70, pulse 58 and regular, respiratory rate 18and unlabored, and temperature afebrile.HEENT: Head, atraumatic and normocephalic. Eyes and ENT examination withinnormal for age.NECK: Supple. No jugular venous distention, bruits, or lymphadenopathy.Normal upstroke.LUNGS: Clear and resonant.HEART: Regular rate and rhythm with II/ systolic ejection murmur at the leftlower sternal border. No gallops. The heart rate is bradycardic.ABDOMEN: Soft. No tenderness, no organomegaly, no masses or bruits.EXTREMITIES: A 1+ distal pulses. No edema, cyanosis, or clubbing.NEUROLOGIC: Alert and oriented x3. Examination appears to be nonfocal. LABORATORY DATA: Pending. Noninvasive cardiovascular workup enclosed. IMPRESSION: This is a 65-year-old patient with advanced atheroscleroticcardiovascular disease, documented carotid disease, abnormal nuclear stress testand abnormal peripheral arterial disease. The patient is here for cardiac,carotid, and peripheral angiography to assess for possible furtherrevascularization. The patient understands that revascularization may be neededto be done on several settings due to the extent of disease. We will proceedfrom the right groin. The risks and benefits of the planned procedures werediscussed in detail with the patient. The patient was strongly advised to quittobacco use and follow risk factor modification. The patient is willing toproceed. Dictated By: Andrew Moe MD WT: PREOPHP:MALVIN/CECILE/ESTELADD: 01/21/2021 07:41:40DT: 01/21/2021 11:53:14Conf#: [id number]/DID#: [id number] and Edited by Andrew Moe MD On 01/21/21 5:02:33 PM at 1705 PATIENT NAME: GREGORY GONZALES and physical hccthdrpjbo0571-54-95J09:53:00Z.[id number] VAvailable for patient tlueRRTKGVRQSMPTER9898-15-84H14:06:13 [facility]
[2024-04-22] MEDS ORDERED: ONDANSETRON 4 MG/2 ML VIAL ONE (13:30)
[2024-04-22] MEDS ORDERED: NA CHLORIDE 0.9% 1,000 ML ONE (13:30)
[2024-04-22] MEDS ORDERED: MORPHINE 4 MG/ML SYR ONE (13:30)
[2024-04-22 14:03] LABS: Absolute Basophils 0.1 K/uL (0-0.5); Absolute Eosinophils 0.2 K/uL (0-0.5); Absolute Lymphocytes (CBC) 2.3 K/uL (0.7-4.9); Absolute Monocytes 0.6 K/uL (0.1-1.3); Absolute Neutrophil 4.3 K/uL (1.8-8.0); Basophils % 1.5 % (0-1.3); Eosinophils % 2.4 % (0-4.4); Hematocrit 44.1 % (39.6-49.0); Hemoglobin 14.8 g/dL (13.6-17.9); Lymphocytes % 30.3 % (15.3-44.8); MCH 30.7 pg (27.0-35.0); MCHC 33.7 g/dL (32.0-36.0); MCV 91.2 fL (80-100); MPV 9.3 fL (7.6-11.3); Monocytes % 8.1 % (3.3-12.3); Neutrophils % 57.7 % (41.7-73.7); Platelets 137 thou/uL (152-406); RBC Red Blood Cell Count 4.83 M/uL (4.33-5.43); Red Cell Distribution Width 14.4 % (12.1-15.2)
[2024-04-22 14:09] LABS: Specific Gravity 1.014 (1.005-1.030); Urine Bilirubin NEGATIVE (Negative); Urine Blood Negative (Negative); Urine Clarity Clear (Clear); Urine Color Light-Yellow (Yellow); Urine Glucose NEGATIVE (Negative); Urine Ketones NEGATIVE (Negative); Urine Microscopic Reflex YN NO UMIC; Urine Nitrite NEGATIVE (Negative); Urine Protein NEGATIVE (Negative); Urine Urobilinogen Normal (Normal); Urine pH 6.5 (5.0-7.0)
[2024-04-22 14:31] LABS: Albumin 3.7 g/dL (3.4-5.0); Albumin/Globulin Ratio 1.2 (1.1-1.8); Anion Gap 6.4 mEq/L (5.0-15.0); Bilirubin Total 0.7 mg/dL (0.2-1.0); Potassium 3.4 mEq/L (3.5-5.1); Protein, Total 6.7 g/dL (6.4-8.2)
--- NOTE | 2024-04-22 15:00 | RAD REPORT ---
EXAM DESCRIPTION: CTAbdomen Pelvis W Contrast - 04/22/2024 2:41 pm CLINICAL HISTORY: Abdominal pain. ABD PAIN COMPARISON: No comparisons TECHNIQUE: Biphasic CT imaging of the abdomen and pelvis was performed with 100 ml non-ionic IV cont rast. All CT scans are performed using dose optimization technique as appropriate and may include automated exposure control or mA/KV adjustment according to patient size. FINDINGS: The lung bases are clear. The liver, spleen, pancreas, adrenal glands and kidneys are within normal limits. Benign bilateral re nal cysts. No bowel obstruction, free air, free fluid or abscess. The appendix is normal. Prostate gland is pro minent and projects into the bladder base. No evidence of significant lymphadenopathy. Abdominal aort a is atherosclerotic. No suspicious bony findings. IMPRESSION: No acute intra-abdominal or pelvic finding. Prominent prostate gland which projects into the bladder base.
[2024-04-22 16:22] VITALS: BP 149/84; TEMP 98.4; O2SAT 100
--- NOTE | 2024-04-22 18:11 | EDPHYS ---
Physician Documentation [facility] Fanny Name: Van Art Age: 68 yrs Sex: Male : 1955 Arrival Date: 04/22/2024 Time: 13:11 Bed 25 Private MD: ED Physician Rafael Molina HPI: 04/22 13:26 This 68 yrs old Black Male presents to ER via Ambulatory with complaints of Abdominal ec2 Pain. 13:26 Patient arrives today for several weeks of lower abdominal pain, patient's pain is ec2 worsened which prompted evaluation.. Historical: - Allergies: 13:14 No Known Allergies; ll1 - PMHx: 13:14 Hypertensive disorder; ll1 13:21 Hypercholesterolemia; ll1 - PSHx: 13:21 hernia repair; ll1 - Immunization history:: Adult Immunizations up to date. - Infectious Disease History:: Denies. - Social history:: Smoking status: Patient reports the use of cigarette tobacco products, smokes one-half pack cigarettes per day. ROS: 13:26 Constitutional: as per hpi ec2 Exam: 13:26 Constitutional: GEN: NAD Head: atraumatic Eyes: EOMI Ears: External ears are ec2 normal. CV: regular rate LUNGS: no respiratory distress ABD: non-distended, soft, tender in the lower abdomen, no guarding, not rigid. SKIN: no evidence of rashes MSK: no evidence of trauma NEURO: moves all extremities equally Vital Signs: 13:21 BP 162 / 91; Pulse 68; Resp 17; Temp 98.4; Pulse Ox 99% ; Height 5 ft. 7161 in. ; ll1 14:54 BP 149 / 84; Pulse 49; Resp 18; Pulse Ox 100% on R/A; ap3 MDM: 13:23 Patient medically screened. ec2 13:26 Data reviewed: vital signs. ED course: Patient arrives today for lower abdominal pain. ec2 Emanation remarkable abdominal findings as above. Will obtain lab work, CT imaging and treat symptoms. Differential does include diverticulitis, urinary tract infection, pancreatitis. 14:33 ED course: CBC reassuring, metabolic profile shows slight hypokalemia, lipase within ec2 normal ranges, urine noninfectious appearing, pending CT imaging. . 15:05 ED course: CT abdomen pelvis shows no acute intra-abdominal process, prostatomegaly ec2 noted. Will discharge patient have the patient follow-up with GI. Return precautions given. . 15:20 ED course: MDM: Differential diagnosis as documented above in ED course; All lab tests ec2 ordered and reviewed as documented above; Parenteral controlled substances: Yes; History gathered from independent historian: Yes, family . 04/22 13:16 Order name: CBC with Diff; Complete Time: 14:33 ec2 04/22 13:16 Order name: CMP; Complete Time: 14:33 ec2 04/22 13:16 Order name: Lipase; Complete Time: 14:33 ec2 04/22 13:16 Order name: Urinalysis w/ reflexes; Complete Time: 14:33 ec2 04/22 13:24 Order name: CT Abd/Pelvis - IV Contrast Only; Complete Time: 15:05 ec2 04/22 13:16 Order name: IV Saline Lock; Complete Time: 13:54 ec2 04/22 13:16 Order name: Labs collected and sent; Complete Time: 13:54 ec2 Administered Medications: 13:54 Drug: NS 0.9% IV 1000 ml IV at 1 bolus Per protocol; 1000 mL bolus Route: IV; Rate: 1 ap3 bolus; Site: right antecubital; 15:19 Follow up: IV Status: Completed infusion; IV Intake: 1000ml ap3 13:54 Drug: Ondansetron IVP 4 mg IVP once; over 2 minutes Route: IVP; Site: right antecubital;ap3 15:19 Follow up: Response: No adverse reaction ap3 13:54 Drug: morphine IVP or IV 4 mg IVP once over 4 mins Route: IVP; Infused Over: 4 mins; ap3 Site: right antecubital; 15:19 Follow up: Response: No adverse reaction; Pain is decreased ap3 Disposition Summary: 04/22/24 15:18 Discharge Ordered Notes: Location: Home ec2 Condition: Stable ec2 Diagnosis - Lower abdominal pain, unspecified ec2 - Enlarged prostate without lower urinary tract symptoms ec2 Followup: ec2 - With: Mane Carlson MD - When: - Reason: Recheck today's complaints Discharge Instructions: - Discharge Summary Sheet ec2 - Abdominal Pain, Adult, [place] ec2 Forms: - Medication Reconciliation Form ec2 - Antibiotic Education ec2 - Prescription Opioid Use ec2 - Patient Portal Instructions ec2 - Leadership Thank You Letter ec2 Prescriptions: - Zofran 4 mg Oral Tablet - take 1 tablet ORAL route every 12 hours As needed; 20 tablet; Refills: 0, ec2 Product Selection Permitted Signatures: Dispatcher [employer] Radhika Ko RN RN ap3 Apryl Young RN RN ll1 Rafael Molina MD MD ec2 Corrections: (The following items were deleted from the chart) 13:16 13:16 CBC+H.LAB.BRZ ordered. EDMS EDMS 13:16 13:16 COMPREHENSIVE METABOLIC PANEL+C.LAB.BRZ ordered. EDMS EDMS 13:16 13:16 LIPASE+C.LAB.BRZ ordered. EDMS EDMS 13:16 13:16 Urinalysis+U.LAB.BRZ ordered. EDMS EDMS
--- NOTE | 2024-04-22 18:11 | ER ---
Nurse's Notes [facility] Fanny Name: Van Art Age: 68 yrs Sex: Male : 1955 Arrival Date: 04/22/2024 Time: 13:11 Bed 25 Private MD: Diagnosis: Lower abdominal pain, unspecified;Enlarged prostate without lower urinary tract symptoms Presentation: 04/22 13:21 Chief complaint: Patient states: B abdominal pain off/on since March. Very soft stool for ll1 past 6 weeks. Coronavirus screen: Client denies travel out of the [place] in the last 14 days. At this time, the client does not indicate any symptoms associated with coronavirus-19. Ebola Screen: Patient denies travel to an Ebola-affected area in the 21 days before illness onset. Initial Sepsis Screen: Does the patient meet any 2 criteria? No. Patient's initial sepsis screen is negative. Does the patient have a suspected source of infection? No. Patient's initial sepsis screen is negative. Risk Assessment: Do you want to hurt yourself or someone else? Patient reports no desire to harm self or others. Onset of symptoms was March 05, 2024. 13:21 Method Of Arrival: Ambulatory ll1 13:21 Acuity: WARREN 3 ll1 Triage Assessment: 13:22 General: Appears uncomfortable, Behavior is calm, cooperative, appropriate for age. ll1 Pain: Complains of pain in abdomen Quality of pain is described as aching. GI: Reports lower abdominal pain, diarrhea. Historical: - Allergies: 13:14 No Known Allergies; ll1 - PMHx: 13:14 Hypertensive disorder; ll1 13:21 Hypercholesterolemia; ll1 - PSHx: 13:21 hernia repair; ll1 - Immunization history:: Adult Immunizations up to date. - Infectious Disease History:: Denies. - Social history:: Smoking status: Patient reports the use of cigarette tobacco products, smokes one-half pack cigarettes per day. Screenin:55 [facility] ED Fall Risk Assessment (Adult) History of falling in the last 3 months, ap3 including since admission No falls in past 3 months (0 pts) Confusion or Disorientation No (0 pts) Intoxicated or Sedated No (0 pts) Impaired Gait No (0 pts) Mobility Assist Device Used No (0 pt) Altered Elimination No (0 pt) Score/Fall Risk Level 0 - 2 = Low Risk Oriented to surroundings, Maintained a safe environment, Educated pt \T\ family on fall prevention, incl call for assistance when getting out of bed, Assessed \T\ reinforced patient's understanding of fall precautions, Provided non-skid footwear, Hourly rounding (assess needs \T\ fall precautionary measures) done, Used ambulatory aids as needed (educated on \T\ assisted with), Used gait belt as appropriate. Abuse screen: Denies threats or abuse. Nutritional screening: No deficits noted. Tuberculosis screening: No symptoms or risk factors identified. Assessment: 13:55 General: Appears in no apparent distress. Behavior is calm, cooperative, appropriate ap3 for age. Pain: Complains of pain in right upper quadrant and right lower quadrant Is intermittent. Neuro: Level of Consciousness is awake, alert, obeys commands, Oriented to person, place, time, situation. Cardiovascular: Patient's skin is warm and dry. Respiratory: Airway is patent Respiratory effort is even, unlabored, Respiratory pattern is regular, symmetrical. GI: Reports lower abdominal pain, upper abdominal pain, nausea. 15:18 GI: Abd is soft. ap3 Vital Signs: 13:21 BP 162 / 91; Pulse 68; Resp 17; Temp 98.4; Pulse Ox 99% ; Height 5 ft. 7161 in. ; ll1 14:54 BP 149 / 84; Pulse 49; Resp 18; Pulse Ox 100% on R/A; ap3 ED Course: 13:12 Patient arrived in ED. rg4 13:14 Arm band placed on Patient placed in an exam room, on a stretcher. ll1 13:15 Radhika Bobby, RANULFO is Primary Nurse. ap3 13:15 Rafael Molina MD is Attending Physician. ec2 13:17 Patient has correct armband on for positive identification. Bed in low position. Call ap3 light in reach. Side rails up X 1. Adult w/ patient. Pulse ox on. NIBP on. 13:22 Triage completed. ll1 13:54 Initial lab(s) drawn, by me, sent to lab. Urine collected: clean catch specimen, clear. ap3 Inserted saline lock: 20 gauge in right antecubital area, using aseptic technique. Blood collected. 13:56 Provided Education on: call light and fall education. ap3 14:43 CT Abd/Pelvis - IV Contrast Only In Process Unspecified. EDMS 15:14 ED physician to see patient. ap3 15:18 Mane Carlson MD is Referral Physician. ec2 15:18 No provider procedures requiring assistance completed. IV discontinued, intact, ap3 bleeding controlled, No redness/swelling at site. Pressure dressing applied. Administered Medications: 13:54 Drug: NS 0.9% IV 1000 ml IV at 1 bolus Per protocol; 1000 mL bolus Route: IV; Rate: 1 ap3 bolus; Site: right antecubital; 15:19 Follow up: IV Status: Completed infusion; IV Intake: 1000ml ap3 13:54 Drug: Ondansetron IVP 4 mg IVP once; over 2 minutes Route: IVP; Site: right antecubital;ap3 15:19 Follow up: Response: No adverse reaction ap3 13:54 Drug: morphine IVP or IV 4 mg IVP once over 4 mins Route: IVP; Infused Over: 4 mins; ap3 Site: right antecubital; 15:19 Follow up: Response: No adverse reaction; Pain is decreased ap3 Medication: 13:56 VIS not applicable for this client. ap3 Intake: 15:19 IV: 1000ml; Total: 1000ml. ap3 Outcome: 15:18 Discharge ordered by . ec2 15:18 Discharged to home ambulatory, with family, ap3 15:18 Condition: good 15:24 Discharge instructions given to patient, family, Instructed on discharge instructions, ap3 follow up and referral plans. medication usage, Demonstrated understanding of instructions, follow-up care, medications, Prescriptions given X 1, 15:24 Patient left the ED. ap3 Signatures: Dispatcher [employer] Fior Mcnulty rg4 Radhika Bobby RN RN ap3 Apryl Young RN RN ll1 Rafael Molina MD MD ec2
== END 2024-04-22 15:24 | disposition home or self-care (01) ==
LOC: ER 13:11
DX: N40.1 Benign prostatic hyperplasia with lower urinary tract symptoms (principal)
CPT/HCPCS: 85025; 36415; 81003; 83690; 80053; 74177; Q9967; J2405; J7030